=== PATIENT | female | born 1980 | race Caucasian/White ===

== ENCOUNTER 2020-01-30 16:38 | Inpatient (IN) | payer MEDICAID ==
[~2020-01-30] VITALS: Ht 170.2 cm; Wt 74.0 kg
--- NOTE | 2020-01-30 16:48 | NUR ---
PT SENT FROM [facility] VIA EMS FOR ABNORMAL LABS. PT AMMONIA IS HIGH, K 2.9, SODIUM 129, CREAT 7.1, AND ELEVATED LIVER AND PANCREAS ENZYMES. PT HAS HX OF CIRROSHIS. PT APPEARS TO BE JAUNDICED. PT IS AWARE OF PERSON, PLACE, TIME, SITUATION BUT IS NOT ALERT. SHE IS DROWSY AND HER WORDS ARE SLURRED. PT IS RESTING IN GURNEY. 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
--- NOTE | 2020-01-30 17:42 | NUR ---
TASK RN: PT RESTING IN GURNEY WITH EYES CLOSED, EASILY ARROUSABLE TO VOICE AND LIGHT PHYSICAL STIM THEN DRIFTS SWIFTLY TO SLEEP. NAD NOTED. RESPIRATIONS EVEN/UNLABORED. VS UNREMARKABLE
[2020-01-30] MEDS ORDERED: TRAZ-175 PO (18:05)
[2020-01-30] MEDS ORDERED: VENL37.511 PO (18:05)
[2020-01-30] MEDS ORDERED: ONDA4TAB13 SL (18:05)
[2020-01-30] MEDS ORDERED: PANT40TA6 PO (18:05)
[2020-01-30] MEDS ORDERED: NADO80TA2 PO (18:05)
[2020-01-30] MEDS ORDERED: ALBUTEROL (18:05)
[2020-01-30] MEDS ORDERED: SUCR1TAB PO (18:05)
[2020-01-30] MEDS ORDERED: LACT10SO28 PO (18:05)
[2020-01-30] MEDS ORDERED: MULTIVITAMIN (18:05)
[2020-01-30 18:10] LABS: ALBUMIN 1.9 g/dL (3.4-5.0); ANION GAP 11 mmol/L (5-15); CALCIUM 7.4 mg/dL (8.5-10.1); CHLORIDE 99 mmol/L (98-107); CREATININE 4.73 mg/dL (0.55-1.02)
[2020-01-30] MEDS ORDERED: NS + 20MEQ KCL 1,000 ML IV SCH (19:08)
[2020-01-30] MEDS ORDERED: hydrALAzine 20 MG/ML, 1ML IVPush PRN (19:30)
[2020-01-30] MEDS ORDERED: SODIUM CHLORIDE 0.9% 1,000 ML IV SCH (19:30)
[2020-01-30 20:19] VITALS: BP 120/86
[2020-01-30 20:25] LABS: CALCIUM 7.5 mg/dL (8.5-10.1)
[2020-01-30 20:26] LABS: ABSOLUTE RETICS # 0.1 x10^6/uL (0.5-2.5); RED BLOOD COUNT 4.05 x10^6/uL (3.82-5.3); RETICULOCYTE COUNT % 2.48 % (0.5-1.5)
[2020-01-30 20:34] LABS: % IRON SATURATION 28 % (20-55); CREATINE KINASE, TOTAL 19 U/L (26-192); IRON LEVEL 75 mcg/dL (50-170); TOTAL IRON BINDING CAPACITY 264 mcg/dL (250-450)
[2020-01-30 20:56] LABS: INTERNATIONAL NORMALIZED RATIO 1.32 (0.93-1.1); PROTHROMBIN TIME 13.6 Seconds (9.6-11.5)
[2020-01-30] MEDS: LACTULOSE 10 GM/15 ML UDC PO SCH (21:00)
[2020-01-30] MEDS: PANTOPRAZOLE 40MG TABLET PO SCH (21:00)
[2020-01-30] MEDS: POTASSIUM CHLORIDE 20 MEQ in SODIUM CHLORIDE 0.9% 1,000 ML IV SCH (21:18)
[2020-01-30] MEDS: NICOTINE 14MG/24 HR PATCH.TD24 TD SCH (21:33)
[2020-01-30] MEDS: FAMOTIDINE 20 MG/2 ML IVPush SCH (21:33)
[2020-01-30] MEDS: INSULIN LISPRO 100 UNITS/ML, PEN SQ-INSULIN SCH (22:18)
[2020-01-31 00:57] VITALS: BP 124/85
[2020-01-31] MEDS: LIDODERM 5% PATCH TD PRN (00:57)
[2020-01-31] MEDS: POTASSIUM CHLORIDE 20 MEQ in SODIUM CHLORIDE 0.9% 1,000 ML IV SCH ×3 (02:28→23:44)
[2020-01-31 05:00] LABS: MICROSCOPIC INDICATED
[2020-01-31 05:00] LABS: MEAN CORPUSCULAR HEMOGLOBIN 31.5 pg (27.0-34.8); MEAN CORPUSCULAR HGB CONC 33.2 g/dL (32.4-35.8); MEAN CORPUSCULAR VOLUME 94.7 fL (80-100); MEAN PLATELET VOLUME 9.3 fL (7.4-10.4); PLATELET COUNT 118 x10^3/uL (130-400); RED BLOOD COUNT 4.16 x10^6/uL (3.82-5.3); RED CELL DISTRIBUTION WIDTH 18.5 % (9.6-15.2)
[2020-01-31 05:04] LABS: CHLORIDE,URINE RANDOM 13 mmol/L; POTASSIUM,URINE RANDOM 26 mmol/L; SODIUM,URINE RANDOM 11 mmol/L
[2020-01-31 05:08] VITALS: BP 132/72
[2020-01-31 05:09] LABS: ANION GAP 9 mmol/L (5-15); CALCIUM 7.3 mg/dL (8.5-10.1); CHLORIDE 106 mmol/L (98-107)
[2020-01-31 05:09] LABS: INTERNATIONAL NORMALIZED RATIO 1.36 (0.93-1.1)
[2020-01-31 05:17] LABS: % IRON SATURATION 22 % (20-55); ALANINE AMINOTRANSFERASE 61 U/L (12-78); ALKALINE PHOSPHATASE 212 U/L (45-117); BILIRUBIN,TOTAL 7.7 mg/dL (0.2-1.0); IRON LEVEL 62 mcg/dL (50-170); TOTAL IRON BINDING CAPACITY 288 mcg/dL (250-450); TOTAL PROTEIN 6.6 g/dL (6.4-8.2)
[2020-01-31 05:23] LABS: OSMOLALITY,URINE 405 mOsm/kg (500-850)
[2020-01-31 05:55] LABS: MD YES
[2020-01-31 05:56] LABS: BAND#(MANUAL) 1.53 x10^3/uL; BANDS%(MANUAL) 7 % (0-7); LYMPHS% (MANUAL) 5 % (22-44); MONOS% (MANUAL) 5 % (2-9); SEG#(MANUAL) 18.18 x10^3/uL (1.8-6.8); SEGS% (MANUAL) 83 % (42-75)
[2020-01-31 05:57] LABS: ANISOCYTOSIS 1+; POLYCHROMASIA 1+; TARGET CELLS 1+
[2020-01-31 05:58] LABS: <PLATELET ESTIMATE> DECREASED; <PLT MORPHOLOGY> NORMAL PLT MORPH
[2020-01-31] MEDS: ACETAMINOPHEN 325 MG TABLET PO PRN (06:43)
[2020-01-31] MEDS ORDERED: POTASSIUM PHOSPHATE 44 MEQ in SODIUM CHLORIDE 0.9% 500 ML IV ONE (07:00)
[2020-01-31] MEDS ORDERED: POTASSIUM CHLORIDE 20 MEQ TAB.ER.PRT PO ONE ×2 (07:00→14:00)
[2020-01-31] MEDS: VENLAFAXINE XR 37.5MG CAP.ER.24H PO SCH (08:26)
[2020-01-31] MEDS: PANTOPRAZOLE 40MG TABLET PO SCH ×2 (08:26→21:11)
[2020-01-31] MEDS: LACTULOSE 10 GM/15 ML UDC PO SCH ×3 (08:26→21:00)
[2020-01-31] MEDS: FAMOTIDINE 20 MG/2 ML IVPush SCH (08:27)
[2020-01-31 08:36] VITALS: BP 134/90
[2020-01-31] MEDS: NADOLOL 20 MG TABLET PO SCH (09:32)
[2020-01-31] MEDS: INSULIN LISPRO 100 UNITS/ML, PEN SQ-INSULIN SCH ×5 (09:34→21:12)
[2020-01-31] MEDS: CEFTRIAXONE PMX 1GM/50ML 50 ML IV SCH (10:56)
[2020-01-31 11:37] LABS: OCCULT BLOOD POSITIVE (NEGATIVE)
[2020-01-31] MEDS ORDERED: LORazepam 0.5MG TABLET PO PRN (12:00)
[2020-01-31] MEDS ORDERED: LORazepam 2 MG/ML, 1ML IV PRN (12:00)
[2020-01-31] MEDS ORDERED: LORazepam 1MG TABLET PO PRN ×4 (12:00)
[2020-01-31] MEDS: LORazepam 2 MG/ML, 1ML IV PRN ×3 (12:17→21:11)
[2020-01-31] MEDS: LIDODERM REMOVE PATCH NOTE XX SCH (13:00)
[2020-01-31 13:11] LABS: ANION GAP 10 mmol/L (5-15); CALCIUM 6.8 mg/dL (8.5-10.1); CHLORIDE 110 mmol/L (98-107); CREATININE 2.64 mg/dL (0.55-1.02)
[2020-01-31] MEDS: THIAMINE 200 MG in SODIUM CHLORIDE 0.9% 50 ML IV SCH (14:03)
[2020-01-31 15:09] VITALS: BP 118/87
[2020-01-31 16:03] LABS: POTASSIUM,URINE RANDOM 26 mmol/L; SODIUM,URINE RANDOM 15 mmol/L
[2020-01-31 16:05] LABS: CHLORIDE,URINE RANDOM < 10 mmol/L
[2020-01-31 18:31] VITALS: BP 124/92
[2020-01-31] MEDS: INSULIN GLARGINE 100 UNITS/ML, PEN SQ-INSULIN SCH (21:12)
[2020-01-31] MEDS: NICOTINE 14MG/24 HR PATCH.TD24 TD SCH (21:15)
[2020-02-01] MEDS: LORazepam 2 MG/ML, 1ML IV PRN ×10 (00:45→23:39)
[2020-02-01 01:17] VITALS: BP 147/94
[2020-02-01 06:15] LABS: MEAN CORPUSCULAR HEMOGLOBIN 31.9 pg (27.0-34.8); MEAN CORPUSCULAR HGB CONC 33.8 g/dL (32.4-35.8); MEAN CORPUSCULAR VOLUME 94.3 fL (80-100); MEAN PLATELET VOLUME 9.4 fL (7.4-10.4); PLATELET COUNT 134 x10^3/uL (130-400); RED BLOOD COUNT 3.77 x10^6/uL (3.82-5.3); RED CELL DISTRIBUTION WIDTH 19.4 % (9.6-15.2)
[2020-02-01 06:22] LABS: ALANINE AMINOTRANSFERASE 64 U/L (12-78); ALBUMIN 1.8 g/dL (3.4-5.0); ANION GAP 9 mmol/L (5-15); CALCIUM 6.8 mg/dL (8.5-10.1); CHLORIDE 117 mmol/L (98-107); CREATININE 1.38 mg/dL (0.55-1.02)
[2020-02-01 06:23] LABS: ALKALINE PHOSPHATASE 210 U/L (45-117); BILIRUBIN,TOTAL 7.2 mg/dL (0.2-1.0); TOTAL PROTEIN 6.7 g/dL (6.4-8.2)
[2020-02-01] MEDS ORDERED: CALCIUM GLUCONATE 9.2 MEQ in SODIUM CHLORIDE 0.9% 100 ML IV ONE (06:30)
[2020-02-01] MEDS ORDERED: POTASSIUM PHOSPHATE 44 MEQ in SODIUM CHLORIDE 0.9% 500 ML IV ONE (06:30)
[2020-02-01 06:37] VITALS: BP 143/90
[2020-02-01 06:39] LABS: MD YES
[2020-02-01 06:42] LABS: ANISOCYTOSIS 1+; BAND#(MANUAL) 3.28 x10^3/uL; BANDS%(MANUAL) 12 % (0-7); LYMPH#(MANUAL) 1.09 x10^3/uL (1-3.4); LYMPHS% (MANUAL) 4 % (22-44); MONOS#(MANUAL) 1.64 x10^3/uL (0.3-2.7); MONOS% (MANUAL) 6 % (2-9); SEG#(MANUAL) 21.29 x10^3/uL (1.8-6.8); SEGS% (MANUAL) 78 % (42-75); TOXIC GRAN 1+
[2020-02-01 06:43] LABS: TARGET CELLS 1+
[2020-02-01 06:50] LABS: <PLATELET ESTIMATE> ADEQUATE; <PLT MORPHOLOGY> NORMAL PLT MORPH
[2020-02-01] MEDS: LACTULOSE 10 GM/15 ML UDC PO SCH (07:51)
[2020-02-01 08:28] LABS: O2 FLOW 15 L/min
[2020-02-01] MEDS: ALBUTEROL-IPRATROPIUM MDI INH INH SCH ×4 (09:30→21:18)
[2020-02-01] MEDS: THIAMINE 200 MG in SODIUM CHLORIDE 0.9% 50 ML IV SCH (09:33)
[2020-02-01] MEDS: NADOLOL 20 MG TABLET PO SCH (09:34)
[2020-02-01] MEDS: PANTOPRAZOLE 40MG TABLET PO SCH ×2 (09:34→21:18)
[2020-02-01] MEDS: VENLAFAXINE XR 37.5MG CAP.ER.24H PO SCH (09:34)
[2020-02-01] MEDS: INSULIN LISPRO 100 UNITS/ML, PEN SQ-INSULIN SCH ×4 (09:35→21:19)
[2020-02-01] MEDS: CEFTRIAXONE PMX 1GM/50ML 50 ML IV SCH (10:00)
[2020-02-01] MEDS ORDERED: LACTATED RINGERS 1,000 ML IV SCH (10:30)
[2020-02-01 10:48] LABS: CLOSTRIDIUM DIFFICILE ANTIGEN NEGATIVE; CLOSTRIDIUM DIFFICILE TOXIN NEGATIVE (Negative)
[2020-02-01] MEDS: LIDODERM REMOVE PATCH NOTE XX SCH (13:00)
[2020-02-01] MEDS: MEROPENEM 1 GM in SODIUM CHLORIDE 0.9% 100 ML IV SCH ×2 (14:00→22:14)
[2020-02-01 14:10] VITALS: BP 138/62
[2020-02-01 18:25] VITALS: BP 132/65
[2020-02-01] MEDS ORDERED: POTASSIUM CHLORIDE 20 MEQ in SODIUM CHLORIDE 0.9% 1,000 ML IV SCH (19:30)
[2020-02-01] MEDS: NICOTINE 14MG/24 HR PATCH.TD24 TD SCH (21:18)
[2020-02-01] MEDS: INSULIN GLARGINE 100 UNITS/ML, PEN SQ-INSULIN SCH (21:19)
[2020-02-02] MEDS: LORazepam 2 MG/ML, 1ML IV PRN ×7 (00:38→18:23)
[2020-02-02 02:00] VITALS: BP 126/62
[2020-02-02 04:45] LABS: MEAN CORPUSCULAR HEMOGLOBIN 31.5 pg (27.0-34.8); MEAN CORPUSCULAR HGB CONC 33.5 g/dL (32.4-35.8); MEAN PLATELET VOLUME 9.1 fL (7.4-10.4); PLATELET COUNT 155 x10^3/uL (130-400); RED BLOOD COUNT 3.81 x10^6/uL (3.82-5.3); RED CELL DISTRIBUTION WIDTH 19.1 % (9.6-15.2)
[2020-02-02 04:53] LABS: ANION GAP 9 mmol/L (5-15); CALCIUM 7.2 mg/dL (8.5-10.1); CHLORIDE 121 mmol/L (98-107); CREATININE 1.02 mg/dL (0.55-1.02)
[2020-02-02 04:54] LABS: ALANINE AMINOTRANSFERASE 71 U/L (12-78); ALBUMIN 1.8 g/dL (3.4-5.0)
[2020-02-02 04:58] LABS: ALKALINE PHOSPHATASE 216 U/L (45-117); BILIRUBIN,TOTAL 7.6 mg/dL (0.2-1.0); TOTAL PROTEIN 6.7 g/dL (6.4-8.2)
[2020-02-02] MEDS: ALBUTEROL-IPRATROPIUM MDI INH INH SCH ×4 (05:12→20:59)
[2020-02-02 05:49] LABS: MD YES
[2020-02-02 05:50] LABS: BAND#(MANUAL) 0.84 x10^3/uL; BANDS%(MANUAL) 3 % (0-7); LYMPH#(MANUAL) 0.84 x10^3/uL (1-3.4); LYMPHS% (MANUAL) 3 % (22-44); MONOS#(MANUAL) 1.12 x10^3/uL (0.3-2.7); MONOS% (MANUAL) 4 % (2-9); SEG#(MANUAL) 25.29 x10^3/uL (1.8-6.8); SEGS% (MANUAL) 90 % (42-75)
[2020-02-02 05:51] LABS: <PLATELET ESTIMATE> ADEQUATE; <PLT MORPHOLOGY> NORMAL PLT MORPH; ANISOCYTOSIS 1+; TARGET CELLS 1+
[2020-02-02] MEDS: MEROPENEM 1 GM in SODIUM CHLORIDE 0.9% 100 ML IV SCH ×3 (06:03→22:01)
[2020-02-02] MEDS ORDERED: POTASSIUM CHLORIDE 20 MEQ TAB.ER.PRT PO ONE (06:30)
[2020-02-02] MEDS ORDERED: POTASSIUM PHOSPHATE 44 MEQ in SODIUM CHLORIDE 0.9% 500 ML IV ONE (06:30)
[2020-02-02 07:18] VITALS: BP 137/96
[2020-02-02] MEDS: THIAMINE 200 MG in SODIUM CHLORIDE 0.9% 50 ML IV SCH (08:36)
[2020-02-02] MEDS: INSULIN LISPRO 100 UNITS/ML, PEN SQ-INSULIN SCH ×4 (08:43→21:00)
[2020-02-02] MEDS: NADOLOL 20 MG TABLET PO SCH (08:48)
[2020-02-02] MEDS: VENLAFAXINE XR 37.5MG CAP.ER.24H PO SCH (08:48)
[2020-02-02] MEDS: PANTOPRAZOLE 40MG TABLET PO SCH (08:48)
[2020-02-02] MEDS: DIAZEPAM 10 MG TABLET PO SCH ×3 (08:49→20:59)
[2020-02-02] MEDS ORDERED: POTASSIUM CHLORIDE 20 MEQ PACKET PO ONE (09:00)
[2020-02-02] MEDS ORDERED: DIAZEPAM 10 MG TABLET PO SCH (09:00)
[2020-02-02] MEDS: LIDODERM REMOVE PATCH NOTE XX SCH (13:00)
[2020-02-02 13:04] VITALS: BP 150/96
[2020-02-02] MEDS: SODIUM BICARBONATE 650 MG TABLET PO SCH ×2 (14:53→20:59)
[2020-02-02 19:12] VITALS: BP 143/92
[2020-02-02] MEDS: NICOTINE 14MG/24 HR PATCH.TD24 TD SCH (20:59)
[2020-02-02] MEDS: INSULIN GLARGINE 100 UNITS/ML, PEN SQ-INSULIN SCH (21:01)
[2020-02-02] MEDS: PANTOPRAZOLE 40 MG IV IVPush SCH (23:25)
[2020-02-03] MEDS: LORazepam 2 MG/ML, 1ML IV PRN ×6 (00:44→18:18)
[2020-02-03 01:55] VITALS: BP 137/86
[2020-02-03] MEDS: DIAZEPAM 10 MG TABLET PO SCH ×2 (03:16→08:20)
[2020-02-03] MEDS: MEROPENEM 1 GM in SODIUM CHLORIDE 0.9% 100 ML IV SCH (05:47)
[2020-02-03] MEDS: ALBUTEROL-IPRATROPIUM MDI INH INH SCH ×4 (05:48→21:41)
[2020-02-03 06:19] LABS: ALANINE AMINOTRANSFERASE 83 U/L (12-78); ALBUMIN 1.9 g/dL (3.4-5.0); ANION GAP 7 mmol/L (5-15); CALCIUM 7.6 mg/dL (8.5-10.1); CHLORIDE 122 mmol/L (98-107)
[2020-02-03 06:21] LABS: ALKALINE PHOSPHATASE 239 U/L (45-117)
[2020-02-03 06:26] LABS: MEAN CORPUSCULAR HEMOGLOBIN 31.5 pg (27.0-34.8); MEAN CORPUSCULAR HGB CONC 32.9 g/dL (32.4-35.8); MEAN CORPUSCULAR VOLUME 95.9 fL (80-100); MEAN PLATELET VOLUME 8.7 fL (7.4-10.4); PLATELET COUNT 201 x10^3/uL (130-400); RED BLOOD COUNT 3.73 x10^6/uL (3.82-5.3); RED CELL DISTRIBUTION WIDTH 20.7 % (9.6-15.2)
[2020-02-03 06:49] LABS: MD YES
[2020-02-03 06:50] VITALS: BP 144/91
[2020-02-03 06:50] LABS: BAND#(MANUAL) 0.65 x10^3/uL; BANDS%(MANUAL) 2 % (0-7); EOS#(MANUAL) 0.33 x10^3/uL (0.0-0.4); EOS% (MANUAL) 1 % (1-7); LYMPHS% (MANUAL) 8 % (22-44)
[2020-02-03 06:51] LABS: ANISOCYTOSIS 1+; MONOS#(MANUAL) 1.95 x10^3/uL (0.3-2.7); MONOS% (MANUAL) 6 % (2-9); SEG#(MANUAL) 26.98 x10^3/uL (1.8-6.8); SEGS% (MANUAL) 83 % (42-75); TARGET CELLS 1+
[2020-02-03 06:52] LABS: <PLATELET ESTIMATE> ADEQUATE; <PLT MORPHOLOGY> NORMAL PLT MORPH; POLYCHROMASIA 1+
[2020-02-03] MEDS ORDERED: POTASSIUM PHOSPHATE 44 MEQ in SODIUM CHLORIDE 0.9% 500 ML IV ONE (07:00)
[2020-02-03] MEDS: NADOLOL 20 MG TABLET PO SCH (08:20)
[2020-02-03] MEDS: SODIUM BICARBONATE 650 MG TABLET PO SCH ×2 (08:20→21:41)
[2020-02-03] MEDS: PANTOPRAZOLE 40 MG IV IVPush SCH ×2 (08:20→21:41)
[2020-02-03] MEDS: INSULIN LISPRO 100 UNITS/ML, PEN SQ-INSULIN SCH ×4 (08:20→21:42)
[2020-02-03] MEDS: ACETAMINOPHEN 325 MG TABLET PO PRN (08:41)
[2020-02-03] MEDS: HEPARIN 5,000 UNITS/ML, 1ML SQ SCH ×2 (08:41→16:21)
[2020-02-03] MEDS: CEFTRIAXONE PMX 1GM/50ML 50 ML IV SCH (08:44)
[2020-02-03] MEDS: VENLAFAXINE XR 37.5MG CAP.ER.24H PO SCH (09:10)
[2020-02-03] MEDS: THIAMINE 200 MG in SODIUM CHLORIDE 0.9% 50 ML IV SCH (09:16)
[2020-02-03 09:47] LABS: INTERNATIONAL NORMALIZED RATIO 1.41 (0.93-1.1); PROTHROMBIN TIME 14.6 Seconds (9.6-11.5)
[2020-02-03] MEDS ORDERED: DEXTROSE 5% 1,000 ML IV SCH (11:00)
[2020-02-03] MEDS: LIDODERM REMOVE PATCH NOTE XX SCH (12:20)
[2020-02-03 14:52] VITALS: BP 120/82
[2020-02-03] MEDS: DIAZEPAM 5 MG TABLET PO SCH ×2 (15:09→21:41)
[2020-02-03 19:37] VITALS: BP 130/90
[2020-02-03] MEDS: NICOTINE 14MG/24 HR PATCH.TD24 TD SCH (20:15)
[2020-02-03] MEDS: VENLAFAXINE 37.5MG TABLET PO SCH (21:41)
[2020-02-03] MEDS: INSULIN GLARGINE 100 UNITS/ML, PEN SQ-INSULIN SCH (21:42)
[2020-02-04 00:10] VITALS: BP 137/94
[2020-02-04] MEDS: HEPARIN 5,000 UNITS/ML, 1ML SQ SCH ×4 (01:28→23:38)
[2020-02-04] MEDS: DIAZEPAM 5 MG TABLET PO SCH ×3 (02:42→20:53)
[2020-02-04] MEDS: LORazepam 2 MG/ML, 1ML IV PRN ×2 (03:59→23:08)
[2020-02-04] MEDS: ALBUTEROL-IPRATROPIUM MDI INH INH SCH ×4 (05:06→21:00)
[2020-02-04 06:08] LABS: MEAN CORPUSCULAR HEMOGLOBIN 31.9 pg (27.0-34.8); MEAN CORPUSCULAR HGB CONC 33.6 g/dL (32.4-35.8); MEAN CORPUSCULAR VOLUME 94.9 fL (80-100); PLATELET COUNT 188 x10^3/uL (130-400); RED BLOOD COUNT 3.48 x10^6/uL (3.82-5.3); RED CELL DISTRIBUTION WIDTH 20.4 % (9.6-15.2)
[2020-02-04 06:20] LABS: ALANINE AMINOTRANSFERASE 102 U/L (12-78); ALBUMIN 1.7 g/dL (3.4-5.0); ANION GAP 6 mmol/L (5-15); CALCIUM 7.6 mg/dL (8.5-10.1); CHLORIDE 124 mmol/L (98-107); CREATININE 1.01 mg/dL (0.55-1.02)
[2020-02-04 06:22] LABS: ALKALINE PHOSPHATASE 244 U/L (45-117); BILIRUBIN,TOTAL 12.9 mg/dL (0.2-1.0)
[2020-02-04 07:00] VITALS: BP 124/81
[2020-02-04 07:07] LABS: MD YES
[2020-02-04 07:08] LABS: ANISOCYTOSIS 1+; LYMPH#(MANUAL) 1.84 x10^3/uL (1-3.4); LYMPHS% (MANUAL) 6 % (22-44); MONOS#(MANUAL) 1.54 x10^3/uL (0.3-2.7); MONOS% (MANUAL) 5 % (2-9); SEG#(MANUAL) 27.32 x10^3/uL (1.8-6.8); SEGS% (MANUAL) 89 % (42-75); TARGET CELLS 1+
[2020-02-04 07:09] LABS: <PLATELET ESTIMATE> ADEQUATE; <PLT MORPHOLOGY> NORMAL PLT MORPH
[2020-02-04] MEDS: INSULIN LISPRO 100 UNITS/ML, PEN SQ-INSULIN SCH ×4 (09:03→21:00)
[2020-02-04] MEDS: CEFTRIAXONE PMX 1GM/50ML 50 ML IV SCH (09:03)
[2020-02-04] MEDS: THIAMINE 200 MG in SODIUM CHLORIDE 0.9% 50 ML IV SCH (11:22)
[2020-02-04] MEDS: PANTOPRAZOLE 40 MG IV IVPush SCH ×2 (11:23→20:52)
[2020-02-04] MEDS: VENLAFAXINE 37.5MG TABLET PO SCH ×2 (11:29→20:53)
[2020-02-04] MEDS: NADOLOL 20 MG TABLET PO SCH (11:29)
[2020-02-04 12:00] VITALS: BP 116/73
[2020-02-04] MEDS: SODIUM BICARBONATE 650 MG TABLET PO SCH ×2 (13:36→20:52)
[2020-02-04] MEDS: LIDODERM REMOVE PATCH NOTE XX SCH (13:43)
[2020-02-04] MEDS: DEXTROSE 5% 1,000 ML IV SCH ×2 (14:57→21:00)
[2020-02-04] MEDS ORDERED: LIDOCAINE GEL 2%, 5ML ONE (16:00)
[2020-02-04] MEDS ORDERED: BENZOCAINE 20% SPRAY 0.5ML ONE (16:00)
[2020-02-04] MEDS: NICOTINE 14MG/24 HR PATCH.TD24 TD SCH (19:30)
[2020-02-04 20:08] VITALS: BP 121/85
[2020-02-04] MEDS: INSULIN GLARGINE 100 UNITS/ML, PEN SQ-INSULIN SCH (21:00)
[2020-02-05 00:06] VITALS: BP 129/85
[2020-02-05 05:40] LABS: MEAN CORPUSCULAR HEMOGLOBIN 32.1 pg (27.0-34.8); MEAN CORPUSCULAR HGB CONC 33.5 g/dL (32.4-35.8); MEAN CORPUSCULAR VOLUME 95.9 fL (80-100); MEAN PLATELET VOLUME 9.7 fL (7.4-10.4); PLATELET COUNT 198 x10^3/uL (130-400); RED BLOOD COUNT 3.29 x10^6/uL (3.82-5.3); RED CELL DISTRIBUTION WIDTH 20.7 % (9.6-15.2)
[2020-02-05 05:50] LABS: ALBUMIN 1.8 g/dL (3.4-5.0); ANION GAP 6 mmol/L (5-15); CALCIUM 7.8 mg/dL (8.5-10.1); CHLORIDE 119 mmol/L (98-107)
[2020-02-05 05:53] LABS: ALANINE AMINOTRANSFERASE 102 U/L (12-78); ALKALINE PHOSPHATASE 232 U/L (45-117); BILIRUBIN,TOTAL 11.9 mg/dL (0.2-1.0); CREATININE 0.99 mg/dL (0.55-1.02); TOTAL PROTEIN 7.3 g/dL (6.4-8.2)
[2020-02-05] MEDS: ALBUTEROL-IPRATROPIUM MDI INH INH SCH ×4 (06:00→22:50)
[2020-02-05 06:25] LABS: BASOPHILS # (AUTO) 0.05 x10^3/uL (0-0.1); BASOPHILS % (AUTO) 0 % (0-1); EOSINOPHILS # (AUTO) 0.12 x10^3/uL (0-0.4); EOSINOPHILS % (AUTO) 0 % (1-7); LYMPHOCYTES # (AUTO) 1.94 x10^3/uL (1-3.4); LYMPHOCYTES % (AUTO) 7 % (22-44); MD SCAN; MONOCYTES # (AUTO) 1.39 x10^3/uL (0.2-0.8); MONOCYTES % (AUTO) 5 % (2-9); NEUTROPHILS # (AUTO) 23.39 x10^3/uL (1.8-6.8); NEUTROPHILS % (AUTO) 87 % (42-75)
[2020-02-05 07:21] VITALS: BP 116/84
[2020-02-05] MEDS: DIAZEPAM 5 MG TABLET PO SCH (09:00)
[2020-02-05] MEDS: SODIUM BICARBONATE 650 MG TABLET PO SCH ×2 (09:35→22:49)
[2020-02-05] MEDS: NADOLOL 20 MG TABLET PO SCH (09:36)
[2020-02-05] MEDS: VENLAFAXINE 37.5MG TABLET PO SCH ×2 (09:36→22:50)
[2020-02-05] MEDS: PANTOPRAZOLE 40 MG IV IVPush SCH ×2 (09:37→22:50)
[2020-02-05] MEDS: HEPARIN 5,000 UNITS/ML, 1ML SQ SCH ×2 (09:38→17:21)
[2020-02-05] MEDS: INSULIN LISPRO 100 UNITS/ML, PEN SQ-INSULIN SCH ×4 (09:39→22:51)
[2020-02-05] MEDS: CEFTRIAXONE PMX 1GM/50ML 50 ML IV SCH (09:44)
[2020-02-05] MEDS: THIAMINE 200 MG in SODIUM CHLORIDE 0.9% 50 ML IV SCH (11:24)
[2020-02-05] MEDS: LIDODERM REMOVE PATCH NOTE XX SCH (13:02)
[2020-02-05 14:37] VITALS: BP 118/81
[2020-02-05 19:50] VITALS: BP 125/81
[2020-02-05] MEDS: ACETAMINOPHEN 325 MG TABLET PO PRN (22:49)
[2020-02-05] MEDS: NICOTINE 14MG/24 HR PATCH.TD24 TD SCH (22:50)
[2020-02-05] MEDS: INSULIN GLARGINE 100 UNITS/ML, PEN SQ-INSULIN SCH (22:51)
[2020-02-05] MEDS: LIDODERM 5% PATCH TD PRN (22:52)
[2020-02-06 00:09] VITALS: BP 122/82
[2020-02-06] MEDS: HEPARIN 5,000 UNITS/ML, 1ML SQ SCH ×3 (02:42→17:30)
[2020-02-06] MEDS: ALBUTEROL-IPRATROPIUM MDI INH INH SCH ×4 (06:22→21:00)
[2020-02-06 06:47] LABS: MEAN CORPUSCULAR HEMOGLOBIN 32.1 pg (27.0-34.8); MEAN CORPUSCULAR HGB CONC 33.4 g/dL (32.4-35.8); MEAN PLATELET VOLUME 9.5 fL (7.4-10.4); PLATELET COUNT 193 x10^3/uL (130-400); RED BLOOD COUNT 3.18 x10^6/uL (3.82-5.3)
[2020-02-06 06:54] LABS: ALBUMIN 1.7 g/dL (3.4-5.0); ANION GAP 8 mmol/L (5-15); CALCIUM 8.1 mg/dL (8.5-10.1); CHLORIDE 119 mmol/L (98-107)
[2020-02-06 07:00] LABS: ALANINE AMINOTRANSFERASE 93 U/L (12-78); ALKALINE PHOSPHATASE 205 U/L (45-117); BILIRUBIN,TOTAL 10.8 mg/dL (0.2-1.0); CREATININE 0.92 mg/dL (0.55-1.02); TOTAL PROTEIN 7.3 g/dL (6.4-8.2)
[2020-02-06 08:08] LABS: BASOPHILS # (AUTO) 0.23 x10^3/uL (0-0.1); BASOPHILS % (AUTO) 1 % (0-1); EOSINOPHILS # (AUTO) 0.12 x10^3/uL (0-0.4); EOSINOPHILS % (AUTO) 1 % (1-7); LYMPHOCYTES # (AUTO) 2.54 x10^3/uL (1-3.4); LYMPHOCYTES % (AUTO) 12 % (22-44); MD SCAN; MONOCYTES # (AUTO) 1.12 x10^3/uL (0.2-0.8); MONOCYTES % (AUTO) 5 % (2-9); NEUTROPHILS # (AUTO) 16.87 x10^3/uL (1.8-6.8); NEUTROPHILS % (AUTO) 81 % (42-75)
[2020-02-06] MEDS ORDERED: INSULIN GLARGINE 100 UNITS/ML, PEN SQ-INSULIN SCH (09:00)
[2020-02-06] MEDS: THIAMINE 200 MG in SODIUM CHLORIDE 0.9% 50 ML IV SCH (09:00)
[2020-02-06] MEDS: ACETAMINOPHEN 325 MG TABLET PO PRN ×2 (09:12→21:47)
[2020-02-06] MEDS: CEFTRIAXONE PMX 1GM/50ML 50 ML IV SCH (09:12)
[2020-02-06] MEDS: PANTOPRAZOLE 40 MG IV IVPush SCH ×2 (09:13→21:46)
[2020-02-06] MEDS: VENLAFAXINE 37.5MG TABLET PO SCH ×2 (09:13→21:48)
[2020-02-06] MEDS: NADOLOL 20 MG TABLET PO SCH (09:13)
[2020-02-06] MEDS: SODIUM BICARBONATE 650 MG TABLET PO SCH (09:14)
[2020-02-06] MEDS: INSULIN LISPRO 100 UNITS/ML, PEN SQ-INSULIN SCH ×5 (09:15→21:49)
[2020-02-06 09:42] VITALS: BP 115/77
[2020-02-06] MEDS: DEXTROSE 5% 1,000 ML IV SCH (10:30)
[2020-02-06] MEDS: LIDODERM REMOVE PATCH NOTE XX SCH (13:00)
[2020-02-06 14:17] VITALS: BP 113/78
[2020-02-06 18:37] VITALS: BP 108/72
[2020-02-06] MEDS: NICOTINE 14MG/24 HR PATCH.TD24 TD SCH (21:46)
[2020-02-06] MEDS: INSULIN GLARGINE 100 UNITS/ML, PEN SQ-INSULIN SCH (21:49)
[2020-02-06] MEDS: LIDODERM 5% PATCH TD PRN (23:43)
[2020-02-07 00:27] VITALS: BP 107/68
[2020-02-07] MEDS: HEPARIN 5,000 UNITS/ML, 1ML SQ SCH ×3 (01:48→16:07)
[2020-02-07 04:29] LABS: MEAN CORPUSCULAR HEMOGLOBIN 32.2 pg (27.0-34.8); MEAN CORPUSCULAR HGB CONC 33.6 g/dL (32.4-35.8); MEAN CORPUSCULAR VOLUME 95.8 fL (80-100); MEAN PLATELET VOLUME 10.1 fL (7.4-10.4); PLATELET COUNT 192 x10^3/uL (130-400); RED CELL DISTRIBUTION WIDTH 21.5 % (9.6-15.2)
[2020-02-07 04:40] LABS: ALBUMIN 1.6 g/dL (3.4-5.0); ANION GAP 9 mmol/L (5-15); CHLORIDE 115 mmol/L (98-107)
[2020-02-07 04:45] LABS: ALANINE AMINOTRANSFERASE 87 U/L (12-78); ALKALINE PHOSPHATASE 187 U/L (45-117); CREATININE 0.89 mg/dL (0.55-1.02); TOTAL PROTEIN 7.1 g/dL (6.4-8.2)
[2020-02-07 05:55] LABS: BASOPHILS # (AUTO) 0.04 x10^3/uL (0-0.1); BASOPHILS % (AUTO) 0 % (0-1); EOSINOPHILS # (AUTO) 0.13 x10^3/uL (0-0.4); EOSINOPHILS % (AUTO) 1 % (1-7); LYMPHOCYTES % (AUTO) 11 % (22-44); MD SCAN; MONOCYTES # (AUTO) 0.54 x10^3/uL (0.2-0.8); MONOCYTES % (AUTO) 3 % (2-9); NEUTROPHILS # (AUTO) 15.15 x10^3/uL (1.8-6.8); NEUTROPHILS % (AUTO) 85 % (42-75)
[2020-02-07] MEDS: DEXTROSE 5% 1,000 ML IV SCH (06:31)
[2020-02-07] MEDS: ALBUTEROL-IPRATROPIUM MDI INH INH SCH ×4 (06:31→22:31)
[2020-02-07 07:24] VITALS: BP 135/88
[2020-02-07] MEDS: VENLAFAXINE 37.5MG TABLET PO SCH ×2 (08:24→22:26)
[2020-02-07] MEDS: PANTOPRAZOLE 40 MG IV IVPush SCH ×2 (08:25→22:26)
[2020-02-07] MEDS: THIAMINE 200 MG in SODIUM CHLORIDE 0.9% 50 ML IV SCH (08:27)
[2020-02-07] MEDS: INSULIN LISPRO 100 UNITS/ML, PEN SQ-INSULIN SCH ×7 (08:28→22:30)
[2020-02-07] MEDS: INSULIN GLARGINE 100 UNITS/ML, PEN SQ-INSULIN SCH ×2 (08:29→22:29)
[2020-02-07] MEDS: NADOLOL 20 MG TABLET PO SCH (09:00)
[2020-02-07] MEDS: CEFTRIAXONE PMX 1GM/50ML 50 ML IV SCH (10:23)
[2020-02-07] MEDS ORDERED: MIDAZOLAM 1 MG/ML, 5ML ONE ×2 (10:40)
[2020-02-07] MEDS ORDERED: FENTANYL PF 100 MCG/2ML ONE (10:40)
[2020-02-07] MEDS ORDERED: GADOTERATE 10 MMOL/20 ML VIAL ONE (11:59)
[2020-02-07] MEDS: LIDODERM REMOVE PATCH NOTE XX SCH (12:36)
[2020-02-07 12:43] VITALS: BP 115/78
[2020-02-07 18:51] VITALS: BP 123/84
[2020-02-07] MEDS: LIDODERM 5% PATCH TD PRN (22:26)
[2020-02-07] MEDS: NICOTINE 14MG/24 HR PATCH.TD24 TD SCH (22:26)
[2020-02-07] MEDS: ACETAMINOPHEN 325 MG TABLET PO PRN (22:26)
[2020-02-08 01:03] VITALS: BP 116/78
[2020-02-08] MEDS: HEPARIN 5,000 UNITS/ML, 1ML SQ SCH ×3 (01:18→17:11)
[2020-02-08 03:16] LABS: ALANINE AMINOTRANSFERASE 77 U/L (12-78); ALBUMIN 1.5 g/dL (3.4-5.0); ANION GAP 8 mmol/L (5-15); CHLORIDE 113 mmol/L (98-107); CREATININE 0.82 mg/dL (0.55-1.02)
[2020-02-08 03:18] LABS: ALKALINE PHOSPHATASE 167 U/L (45-117); BILIRUBIN,TOTAL 7.2 mg/dL (0.2-1.0); TOTAL PROTEIN 7.3 g/dL (6.4-8.2)
[2020-02-08] MEDS: ACETAMINOPHEN 325 MG TABLET PO PRN ×2 (05:57→21:11)
[2020-02-08] MEDS: DEXTROSE 5% 1,000 ML IV SCH (05:58)
[2020-02-08] MEDS: ALBUTEROL-IPRATROPIUM MDI INH INH SCH ×4 (05:58→21:10)
[2020-02-08 07:23] VITALS: BP 102/70
[2020-02-08] MEDS: INSULIN LISPRO 100 UNITS/ML, PEN SQ-INSULIN SCH ×7 (07:35→21:00)
[2020-02-08] MEDS: INSULIN GLARGINE 100 UNITS/ML, PEN SQ-INSULIN SCH ×2 (07:37→21:12)
[2020-02-08] MEDS: VENLAFAXINE 37.5MG TABLET PO SCH ×2 (07:37→21:11)
[2020-02-08] MEDS: NADOLOL 20 MG TABLET PO SCH (07:38)
[2020-02-08] MEDS: PANTOPRAZOLE 40 MG IV IVPush SCH (07:39)
[2020-02-08] MEDS: THIAMINE 200 MG in SODIUM CHLORIDE 0.9% 50 ML IV SCH (07:39)
[2020-02-08] MEDS: LIDODERM 5% PATCH TD PRN (07:40)
[2020-02-08 08:32] LABS: MEAN CORPUSCULAR HEMOGLOBIN 31.8 pg (27.0-34.8); MEAN CORPUSCULAR HGB CONC 32.5 g/dL (32.4-35.8); MEAN CORPUSCULAR VOLUME 97.9 fL (80-100); PLATELET COUNT 182 x10^3/uL (130-400); RED BLOOD COUNT 2.99 x10^6/uL (3.82-5.3); RED CELL DISTRIBUTION WIDTH 21.2 % (9.6-15.2)
[2020-02-08] MEDS: FAMOTIDINE 20 MG TABLET PO SCH ×2 (09:00→21:10)
[2020-02-08 09:22] LABS: MD YES
[2020-02-08 09:23] LABS: MONOS#(MANUAL) 0.34 x10^3/uL (0.3-2.7); MONOS% (MANUAL) 2 % (2-9)
[2020-02-08 09:24] LABS: BAND#(MANUAL) 1.03 x10^3/uL; BANDS%(MANUAL) 6 % (0-7); BASOS#(MANUAL) 0.17 x10^3/uL (0-0.1); BASOS% (MANUAL) 1 % (0-1); LYMPH#(MANUAL) 1.03 x10^3/uL (1-3.4); LYMPHS% (MANUAL) 6 % (22-44); METAMYELOCYTES# (MANUAL) 0.17 x10^3/uL (0-0); METAMYELOCYTES% (MANUAL) 1 % (0-1); SEG#(MANUAL) 14.45 x10^3/uL (1.8-6.8); SEGS% (MANUAL) 84 % (42-75)
[2020-02-08 09:25] LABS: ANISOCYTOSIS 1+; POLYCHROMASIA 1+; TARGET CELLS 1+
[2020-02-08] MEDS: CEFTRIAXONE PMX 1GM/50ML 50 ML IV SCH (09:30)
[2020-02-08 09:33] LABS: <PLATELET ESTIMATE> ADEQUATE; LARGE PLATELETS 1+
[2020-02-08] MEDS: LIDODERM REMOVE PATCH NOTE XX SCH (11:57)
[2020-02-08 13:39] VITALS: BP 94/61
[2020-02-08] MEDS: GABAPENTIN 300 MG CAPSULE PO SCH ×2 (17:11→21:11)
[2020-02-08 19:14] VITALS: BP 99/65
[2020-02-08] MEDS: NICOTINE 14MG/24 HR PATCH.TD24 TD SCH (21:11)
[2020-02-09] MEDS: HEPARIN 5,000 UNITS/ML, 1ML SQ SCH ×3 (01:27→17:22)
[2020-02-09] MEDS: DEXTROSE 5% 1,000 ML IV SCH ×2 (01:27→22:12)
[2020-02-09 01:36] VITALS: BP 99/63
[2020-02-09] MEDS: ALBUTEROL-IPRATROPIUM MDI INH INH SCH ×4 (06:26→22:10)
[2020-02-09 06:58] VITALS: BP 111/79
[2020-02-09] MEDS: INSULIN LISPRO 100 UNITS/ML, PEN SQ-INSULIN SCH ×7 (08:03→22:11)
[2020-02-09] MEDS: VENLAFAXINE 37.5MG TABLET PO SCH ×2 (08:17→22:07)
[2020-02-09] MEDS: FAMOTIDINE 20 MG TABLET PO SCH ×2 (08:17→22:07)
[2020-02-09] MEDS: GABAPENTIN 300 MG CAPSULE PO SCH ×3 (08:17→22:07)
[2020-02-09] MEDS: INSULIN GLARGINE 100 UNITS/ML, PEN SQ-INSULIN SCH ×2 (08:17→22:12)
[2020-02-09] MEDS: NADOLOL 20 MG TABLET PO SCH (08:18)
[2020-02-09] MEDS: CEFTRIAXONE PMX 1GM/50ML 50 ML IV SCH (08:18)
[2020-02-09] MEDS: THIAMINE 200 MG in SODIUM CHLORIDE 0.9% 50 ML IV SCH (10:15)
[2020-02-09] MEDS: LIDODERM REMOVE PATCH NOTE XX SCH (13:10)
[2020-02-09 13:31] VITALS: BP 122/79
[2020-02-09 19:35] VITALS: BP 109/82
[2020-02-09] MEDS: ACETAMINOPHEN 325 MG TABLET PO PRN (22:07)
[2020-02-09] MEDS: NICOTINE 14MG/24 HR PATCH.TD24 TD SCH (22:09)
[2020-02-09] MEDS: LIDODERM 5% PATCH TD PRN (22:09)
[2020-02-10 00:20] VITALS: BP 105/61
[2020-02-10] MEDS: HEPARIN 5,000 UNITS/ML, 1ML SQ SCH ×3 (01:36→17:54)
[2020-02-10 06:21] LABS: INTERNATIONAL NORMALIZED RATIO 1.26 (0.93-1.1)
[2020-02-10 06:25] LABS: ALANINE AMINOTRANSFERASE 61 U/L (12-78); ALBUMIN 1.5 g/dL (3.4-5.0); ANION GAP 8 mmol/L (5-15); CHLORIDE 105 mmol/L (98-107); CREATININE 0.73 mg/dL (0.55-1.02)
[2020-02-10 06:28] LABS: ALKALINE PHOSPHATASE 164 U/L (45-117); BILIRUBIN,TOTAL 7.2 mg/dL (0.2-1.0); TOTAL PROTEIN 7.3 g/dL (6.4-8.2)
[2020-02-10 06:33] LABS: MEAN CORPUSCULAR HEMOGLOBIN 32.5 pg (27.0-34.8); MEAN CORPUSCULAR HGB CONC 32.9 g/dL (32.4-35.8); MEAN PLATELET VOLUME 9.9 fL (7.4-10.4); PLATELET COUNT 203 x10^3/uL (130-400); RED BLOOD COUNT 3.16 x10^6/uL (3.82-5.3); RED CELL DISTRIBUTION WIDTH 22.8 % (9.6-15.2)
[2020-02-10] MEDS: ALBUTEROL-IPRATROPIUM MDI INH INH SCH ×4 (06:41→21:35)
[2020-02-10] MEDS: ACETAMINOPHEN 325 MG TABLET PO PRN (06:45)
[2020-02-10 06:51] LABS: MD YES
[2020-02-10 06:53] LABS: BAND#(MANUAL) 0.26 x10^3/uL; BANDS%(MANUAL) 2 % (0-7); EOS#(MANUAL) 0.13 x10^3/uL (0.0-0.4); EOS% (MANUAL) 1 % (1-7); LYMPH#(MANUAL) 2.23 x10^3/uL (1-3.4); LYMPHS% (MANUAL) 17 % (22-44); MONOS#(MANUAL) 0.92 x10^3/uL (0.3-2.7); MONOS% (MANUAL) 7 % (2-9); SEG#(MANUAL) 9.56 x10^3/uL (1.8-6.8); SEGS% (MANUAL) 73 % (42-75)
[2020-02-10 06:54] VITALS: BP 123/77
[2020-02-10 06:54] LABS: ANISOCYTOSIS 1+; POLYCHROMASIA 1+
[2020-02-10 06:55] LABS: <PLATELET ESTIMATE> ADEQUATE; TARGET CELLS 1+
[2020-02-10 06:56] LABS: <PLT MORPHOLOGY> NORMAL PLT MORPH
[2020-02-10] MEDS: INSULIN LISPRO 100 UNITS/ML, PEN SQ-INSULIN SCH ×7 (07:08→21:36)
[2020-02-10] MEDS: INSULIN GLARGINE 100 UNITS/ML, PEN SQ-INSULIN SCH ×2 (07:10→21:00)
[2020-02-10] MEDS: FAMOTIDINE 20 MG TABLET PO SCH ×2 (08:58→21:35)
[2020-02-10] MEDS: THIAMINE 200 MG in SODIUM CHLORIDE 0.9% 50 ML IV SCH (08:58)
[2020-02-10] MEDS: GABAPENTIN 300 MG CAPSULE PO SCH ×3 (08:59→21:35)
[2020-02-10] MEDS: VENLAFAXINE 37.5MG TABLET PO SCH ×2 (08:59→21:35)
[2020-02-10] MEDS: NADOLOL 20 MG TABLET PO SCH (09:11)
[2020-02-10] MEDS: CEFTRIAXONE PMX 1GM/50ML 50 ML IV SCH (10:03)
[2020-02-10] MEDS: LIDODERM REMOVE PATCH NOTE XX SCH (11:15)
[2020-02-10 13:14] VITALS: BP 118/81
[2020-02-10] MEDS ORDERED: ACETAMINOPHEN 325 MG TABLET PO PRN (15:55)
[2020-02-10] MEDS ORDERED: LIDOCAINE 1%, 10ML ONE (15:59)
[2020-02-10] MEDS ORDERED: ALBUMIN HUMAN 25% 50 ML IV ONE (16:00)
[2020-02-10 17:55] VITALS: BP 102/67
[2020-02-10] MEDS: FUROSEMIDE 20 MG TABLET PO SCH (17:56)
[2020-02-10 19:48] VITALS: BP 110/72
[2020-02-10] MEDS: SPIRONOLACTONE 50 MG TABLET PO SCH (21:35)
[2020-02-10] MEDS: NICOTINE 14MG/24 HR PATCH.TD24 TD SCH (21:40)
[2020-02-11 00:46] VITALS: BP 103/61
[2020-02-11] MEDS: HEPARIN 5,000 UNITS/ML, 1ML SQ SCH ×3 (02:16→17:11)
[2020-02-11] MEDS: ALBUTEROL-IPRATROPIUM MDI INH INH SCH ×4 (05:30→21:09)
[2020-02-11] MEDS: INSULIN LISPRO 100 UNITS/ML, PEN SQ-INSULIN SCH ×7 (07:00→21:01)
[2020-02-11] MEDS: SPIRONOLACTONE 50 MG TABLET PO SCH ×2 (07:53→21:00)
[2020-02-11] MEDS: THIAMINE 100MG TABLET PO SCH (07:53)
[2020-02-11] MEDS: FUROSEMIDE 20 MG TABLET PO SCH ×2 (07:53→17:11)
[2020-02-11] MEDS: VENLAFAXINE 37.5MG TABLET PO SCH ×2 (07:53→21:00)
[2020-02-11] MEDS: GABAPENTIN 300 MG CAPSULE PO SCH ×3 (07:53→21:00)
[2020-02-11] MEDS: FAMOTIDINE 20 MG TABLET PO SCH ×2 (07:54→21:09)
[2020-02-11] MEDS: CEFTRIAXONE PMX 1GM/50ML 50 ML IV SCH (07:55)
[2020-02-11] MEDS: INSULIN GLARGINE 100 UNITS/ML, PEN SQ-INSULIN SCH ×2 (07:56→21:01)
[2020-02-11 08:51] VITALS: BP 96/54
[2020-02-11 09:00] LABS: ANION GAP 7 mmol/L (5-15); CALCIUM 7.9 mg/dL (8.5-10.1); CHLORIDE 104 mmol/L (98-107); CREATININE 0.67 mg/dL (0.55-1.02)
[2020-02-11] MEDS: NADOLOL 20 MG TABLET PO SCH (09:47)
[2020-02-11 12:40] VITALS: BP 95/60
[2020-02-11] MEDS: LIDODERM REMOVE PATCH NOTE XX SCH (13:00)
--- NOTE | 2020-02-11 15:24 | NUR ---
Activity sheet placed in patient's room and patient and RN informed. Recommending ambulation with hand held min assist 3x/day. Addendum: 02/11/20 at 1525 by Jose Alonzo PT Amended: Links added.
[2020-02-11 19:45] VITALS: BP 104/68
[2020-02-11] MEDS: TRAZODONE 100MG TABLET PO PRN (21:00)
[2020-02-11] MEDS: NICOTINE 14MG/24 HR PATCH.TD24 TD SCH (21:01)
[2020-02-11] MEDS: LIDODERM 5% PATCH TD PRN (21:10)
[2020-02-12 00:38] VITALS: BP 102/60
[2020-02-12] MEDS: HEPARIN 5,000 UNITS/ML, 1ML SQ SCH ×3 (01:27→16:32)
[2020-02-12] MEDS: ALBUTEROL-IPRATROPIUM MDI INH INH SCH ×4 (05:26→20:53)
[2020-02-12 07:18] LABS: ALBUMIN 1.5 g/dL (3.4-5.0); ANION GAP 7 mmol/L (5-15); CALCIUM 7.8 mg/dL (8.5-10.1); CHLORIDE 102 mmol/L (98-107)
[2020-02-12 07:21] LABS: ALANINE AMINOTRANSFERASE 56 U/L (12-78); ALKALINE PHOSPHATASE 175 U/L (45-117); BILIRUBIN,TOTAL 6.9 mg/dL (0.2-1.0); CREATININE 0.69 mg/dL (0.55-1.02); TOTAL PROTEIN 7.1 g/dL (6.4-8.2)
[2020-02-12] MEDS: INSULIN LISPRO 100 UNITS/ML, PEN SQ-INSULIN SCH ×7 (07:21→20:55)
[2020-02-12 07:22] LABS: BASOPHILS # (AUTO) 0.11 x10^3/uL (0-0.1); BASOPHILS % (AUTO) 1 % (0-1); EOSINOPHILS # (AUTO) 0.17 x10^3/uL (0-0.4); EOSINOPHILS % (AUTO) 2 % (1-7); LYMPHOCYTES # (AUTO) 2.39 x10^3/uL (1-3.4); LYMPHOCYTES % (AUTO) 21 % (22-44); MD MORPH REVIEW ONLY; MEAN CORPUSCULAR HEMOGLOBIN 33.5 pg (27.0-34.8); MEAN CORPUSCULAR HGB CONC 33.9 g/dL (32.4-35.8); MEAN CORPUSCULAR VOLUME 98.8 fL (80-100); MEAN PLATELET VOLUME 9.4 fL (7.4-10.4); MONOCYTES % (AUTO) 9 % (2-9); NEUTROPHILS # (AUTO) 7.64 x10^3/uL (1.8-6.8); NEUTROPHILS % (AUTO) 68 % (42-75); PLATELET COUNT 188 x10^3/uL (130-400); RED BLOOD COUNT 2.98 x10^6/uL (3.82-5.3); RED CELL DISTRIBUTION WIDTH 24.5 % (9.6-15.2)
[2020-02-12] MEDS: ONDANSETRON 2MG/ML, 2ML IVPush PRN (07:32)
[2020-02-12 08:00] LABS: TARGET CELLS 1+
[2020-02-12 08:02] LABS: ANISOCYTOSIS 1+; POLYCHROMASIA 1+
[2020-02-12] MEDS: INSULIN GLARGINE 100 UNITS/ML, PEN SQ-INSULIN SCH ×2 (08:02→20:56)
[2020-02-12] MEDS: GABAPENTIN 300 MG CAPSULE PO SCH ×3 (08:02→20:54)
[2020-02-12] MEDS: VENLAFAXINE 37.5MG TABLET PO SCH ×2 (08:02→20:54)
[2020-02-12] MEDS: SPIRONOLACTONE 50 MG TABLET PO SCH ×2 (08:03→20:54)
[2020-02-12] MEDS: FAMOTIDINE 20 MG TABLET PO SCH ×2 (08:03→20:54)
[2020-02-12] MEDS: FUROSEMIDE 20 MG TABLET PO SCH ×2 (08:03→16:32)
[2020-02-12] MEDS: THIAMINE 100MG TABLET PO SCH (08:03)
[2020-02-12] MEDS: NADOLOL 20 MG TABLET PO SCH (08:05)
[2020-02-12 08:06] LABS: <PLATELET ESTIMATE> ADEQUATE; <PLT MORPHOLOGY> NORMAL PLT MORPH
[2020-02-12 08:11] VITALS: BP 111/71
[2020-02-12] MEDS: CEFTRIAXONE PMX 1GM/50ML 50 ML IV SCH ×2 (08:56→20:53)
[2020-02-12] MEDS: LIDODERM REMOVE PATCH NOTE XX SCH (11:11)
[2020-02-12 13:33] VITALS: BP 106/70
[2020-02-12 20:07] VITALS: BP 116/77
[2020-02-12] MEDS: NICOTINE 14MG/24 HR PATCH.TD24 TD SCH (20:53)
[2020-02-12] MEDS: TRAZODONE 100MG TABLET PO PRN (20:54)
[2020-02-12] MEDS: LIDODERM 5% PATCH TD PRN (20:56)
[2020-02-13 00:50] VITALS: BP 100/66
[2020-02-13] MEDS: HEPARIN 5,000 UNITS/ML, 1ML SQ SCH ×3 (00:56→17:10)
[2020-02-13] MEDS: ALBUTEROL-IPRATROPIUM MDI INH INH SCH ×4 (05:56→21:14)
[2020-02-13] MEDS: ONDANSETRON 2MG/ML, 2ML IVPush PRN ×3 (06:02→21:23)
[2020-02-13 06:46] LABS: ANION GAP 9 mmol/L (5-15); CALCIUM 7.8 mg/dL (8.5-10.1); CHLORIDE 100 mmol/L (98-107)
[2020-02-13 06:47] LABS: CREATININE 0.69 mg/dL (0.55-1.02)
[2020-02-13] MEDS: INSULIN LISPRO 100 UNITS/ML, PEN SQ-INSULIN SCH ×7 (07:00→21:17)
[2020-02-13 07:24] VITALS: BP 124/74
[2020-02-13] MEDS: GABAPENTIN 300 MG CAPSULE PO SCH ×3 (09:00→21:19)
[2020-02-13] MEDS: NADOLOL 20 MG TABLET PO SCH (09:10)
[2020-02-13] MEDS: VENLAFAXINE 37.5MG TABLET PO SCH ×2 (09:10→21:19)
[2020-02-13] MEDS: FAMOTIDINE 20 MG TABLET PO SCH ×2 (09:10→21:18)
[2020-02-13] MEDS: SPIRONOLACTONE 50 MG TABLET PO SCH ×2 (09:10→21:18)
[2020-02-13] MEDS: THIAMINE 100MG TABLET PO SCH (09:10)
[2020-02-13] MEDS: CEFTRIAXONE PMX 1GM/50ML 50 ML IV SCH ×2 (09:11→21:15)
[2020-02-13] MEDS: FUROSEMIDE 20 MG TABLET PO SCH ×2 (09:11→17:10)
[2020-02-13] MEDS: INSULIN GLARGINE 100 UNITS/ML, PEN SQ-INSULIN SCH ×2 (09:12→21:17)
[2020-02-13] MEDS: LIDODERM 5% PATCH TD PRN (12:32)
[2020-02-13] MEDS: NICOTINE 7 MG/24 HR PATCH.TD24 TD SCH (12:32)
[2020-02-13] MEDS: LIDODERM REMOVE PATCH NOTE XX SCH (12:34)
[2020-02-13] MEDS ORDERED: LIDOCAINE 1%, 10ML ONE (13:29)
[2020-02-13 16:23] VITALS: BP 111/72
[2020-02-13 19:24] VITALS: BP 117/76
[2020-02-13] MEDS: TRAZODONE 100MG TABLET PO PRN (21:24)
[2020-02-14] MEDS: HEPARIN 5,000 UNITS/ML, 1ML SQ SCH ×3 (00:42→17:33)
[2020-02-14] MEDS: LIDODERM REMOVE PATCH NOTE XX SCH (00:42)
[2020-02-14 00:51] VITALS: BP 110/65
[2020-02-14 06:07] LABS: ALBUMIN 1.5 g/dL (3.4-5.0); ANION GAP 8 mmol/L (5-15); CALCIUM 7.8 mg/dL (8.5-10.1); CHLORIDE 98 mmol/L (98-107)
[2020-02-14 06:14] LABS: ALANINE AMINOTRANSFERASE 59 U/L (12-78); ALKALINE PHOSPHATASE 193 U/L (45-117); BILIRUBIN,TOTAL 5.7 mg/dL (0.2-1.0); CHOL/HDL RATIO 10.4; CHOLESTEROL, TOTAL 104 mg/dL (140-239); CREATININE 0.75 mg/dL (0.55-1.02); HDL CHOL % 10 % (28-40); HDL CHOLESTEROL (DIRECT) 10 mg/dL (40-60); TOTAL PROTEIN 7.2 g/dL (6.4-8.2)
[2020-02-14] MEDS: ONDANSETRON 2MG/ML, 2ML IVPush PRN (06:15)
[2020-02-14] MEDS: ALBUTEROL-IPRATROPIUM MDI INH INH SCH ×4 (06:15→21:00)
[2020-02-14 06:16] LABS: MEAN CORPUSCULAR HEMOGLOBIN 33.5 pg (27.0-34.8); MEAN CORPUSCULAR HGB CONC 33.6 g/dL (32.4-35.8); MEAN CORPUSCULAR VOLUME 99.7 fL (80-100); PLATELET COUNT 191 x10^3/uL (130-400); RED BLOOD COUNT 3.04 x10^6/uL (3.82-5.3); RED CELL DISTRIBUTION WIDTH 24.4 % (9.6-15.2)
[2020-02-14 06:18] LABS: LDL CHOLESTEROL,CALCULATED 56 mg/dL (54-169); LDL/HDL RATIO 5.6 (0.5-3.0); TRIGLYCERIDES 189 mg/dL (50-200); VLDL CHOLESTEROL 38 mg/dL (0-25)
[2020-02-14 06:46] LABS: BASOPHILS # (AUTO) 0.11 x10^3/uL (0-0.1); BASOPHILS % (AUTO) 1 % (0-1); EOSINOPHILS # (AUTO) 0.22 x10^3/uL (0-0.4); EOSINOPHILS % (AUTO) 2 % (1-7); LYMPHOCYTES # (AUTO) 2.68 x10^3/uL (1-3.4); LYMPHOCYTES % (AUTO) 23 % (22-44); MD SCAN; MONOCYTES # (AUTO) 1.28 x10^3/uL (0.2-0.8); MONOCYTES % (AUTO) 11 % (2-9); NEUTROPHILS # (AUTO) 7.29 x10^3/uL (1.8-6.8); NEUTROPHILS % (AUTO) 63 % (42-75)
[2020-02-14 07:10] VITALS: BP 97/65
[2020-02-14] MEDS: FAMOTIDINE 20 MG TABLET PO SCH ×2 (08:14→21:23)
[2020-02-14] MEDS: SPIRONOLACTONE 50 MG TABLET PO SCH ×2 (08:14→21:23)
[2020-02-14] MEDS: MAGNESIUM CHLORIDE 70MG TAB DR PO SCH ×2 (08:14→21:22)
[2020-02-14] MEDS: GABAPENTIN 300 MG CAPSULE PO SCH ×3 (08:14→21:23)
[2020-02-14] MEDS: VENLAFAXINE 37.5MG TABLET PO SCH ×2 (08:14→21:23)
[2020-02-14] MEDS: NADOLOL 20 MG TABLET PO SCH ×2 (08:14→12:00)
[2020-02-14] MEDS: CEFTRIAXONE PMX 1GM/50ML 50 ML IV SCH ×2 (08:15→21:22)
[2020-02-14] MEDS: THIAMINE 100MG TABLET PO SCH (08:15)
[2020-02-14] MEDS: FUROSEMIDE 20 MG TABLET PO SCH ×2 (08:15→17:33)
[2020-02-14] MEDS: INSULIN LISPRO 100 UNITS/ML, PEN SQ-INSULIN SCH ×7 (08:16→21:24)
[2020-02-14] MEDS: INSULIN GLARGINE 100 UNITS/ML, PEN SQ-INSULIN SCH ×2 (08:16→21:25)
[2020-02-14 08:23] VITALS: BP 98/63
[2020-02-14] MEDS: NICOTINE 7 MG/24 HR PATCH.TD24 TD SCH (12:11)
[2020-02-14] MEDS: LIDODERM 5% PATCH TD PRN (12:11)
[2020-02-14 12:34] VITALS: BP 124/82
[2020-02-14 19:25] VITALS: BP 102/67
[2020-02-14] MEDS: TRAZODONE 100MG TABLET PO PRN (21:38)
[2020-02-15 00:15] VITALS: BP 99/62
[2020-02-15] MEDS: HEPARIN 5,000 UNITS/ML, 1ML SQ SCH ×2 (01:17→09:00)
[2020-02-15] MEDS: ALBUTEROL-IPRATROPIUM MDI INH INH SCH ×2 (06:21→09:18)
[2020-02-15 07:59] VITALS: BP 111/72
[2020-02-15] MEDS: CEFTRIAXONE PMX 1GM/50ML 50 ML IV SCH ×2 (08:55→09:00)
[2020-02-15] MEDS: FAMOTIDINE 20 MG TABLET PO SCH (08:56)
[2020-02-15] MEDS: MAGNESIUM CHLORIDE 70MG TAB DR PO SCH (08:56)
[2020-02-15] MEDS: NADOLOL 20 MG TABLET PO SCH (08:56)
[2020-02-15] MEDS: VENLAFAXINE 37.5MG TABLET PO SCH (08:56)
[2020-02-15] MEDS: FUROSEMIDE 20 MG TABLET PO SCH (08:56)
[2020-02-15] MEDS: SPIRONOLACTONE 50 MG TABLET PO SCH (08:56)
[2020-02-15] MEDS: GABAPENTIN 300 MG CAPSULE PO SCH (08:57)
[2020-02-15] MEDS: THIAMINE 100MG TABLET PO SCH (08:57)
[2020-02-15] MEDS: INSULIN GLARGINE 100 UNITS/ML, PEN SQ-INSULIN SCH (08:57)
[2020-02-15] MEDS: INSULIN LISPRO 100 UNITS/ML, PEN SQ-INSULIN SCH ×4 (08:58→11:58)
[2020-02-15] MEDS: NICOTINE 7 MG/24 HR PATCH.TD24 TD SCH (09:10)
[2020-02-15] MEDS ORDERED: INSU100I13 SQ-INSULIN (09:30)
[2020-02-15] MEDS ORDERED: NICO-485 TD (09:30)
[2020-02-15] MEDS ORDERED: [UNRECOGNIZED DRUG - CODE] XX (09:30)
[2020-02-15] MEDS ORDERED: THIA100T67 PO (09:30)
[2020-02-15] MEDS ORDERED: VENL37.57 PO (09:30)
[2020-02-15] MEDS ORDERED: FURO20TA3 PO (09:30)
[2020-02-15] MEDS ORDERED: SPIR50TA PO (09:30)
[2020-02-15] MEDS ORDERED: [UNRECOGNIZED DRUG - CODE] XX (09:30)
[2020-02-15] MEDS ORDERED: LANC1COM XX (09:30)
[2020-02-15] MEDS ORDERED: INSU100I11 SQ-INSULIN (09:30)
[2020-02-15] MEDS: LIDODERM REMOVE PATCH NOTE XX SCH (12:15)
[2020-02-15 13:22] VITALS: BP 115/60
== END 2020-02-15 14:40 | disposition home or self-care (01) | DRG 441 ==
LOC: ED 18:17 → EDIP 18:35 → 4WST 19:07 → DCLOUNGE 02-15 14:27
PROVIDERS: ADMIT Family Medicine; ATTEND Hospitalist
PROC: 0DH67UZ Insertion of Feeding Device into Stomach, Via Natural or Artificial Opening (ICD-10-PCS; principal; 2020-02-04)
PROC: 0W9G3ZZ Drainage of Peritoneal Cavity, Percutaneous Approach (ICD-10-PCS; 2020-02-10)
PROC: BW40ZZZ Ultrasonography of Abdomen (ICD-10-PCS; 2020-02-10)
PROC: 0W9G3ZZ Drainage of Peritoneal Cavity, Percutaneous Approach (ICD-10-PCS; 2020-02-13)
PROC: BW40ZZZ Ultrasonography of Abdomen (ICD-10-PCS; 2020-02-13)
DX: K76.7 Hepatorenal syndrome (principal); N17.0 Acute kidney failure with tubular necrosis; K85.20 Alcohol induced acute pancreatitis without necrosis or infection; J18.9 Pneumonia, unspecified organism; E43 Unspecified severe protein-calorie malnutrition; G92 Toxic encephalopathy; I81 Portal vein thrombosis; J44.0 Chronic obstructive pulmonary disease with (acute) lower respiratory infection; F33.9 Major depressive disorder, recurrent, unspecified; E87.2 Acidosis; E87.1 Hypo-osmolality and hyponatremia; K92.2 Gastrointestinal hemorrhage, unspecified; N39.0 Urinary tract infection, site not specified; E87.0 Hyperosmolality and hypernatremia; K76.6 Portal hypertension; D68.9 Coagulation defect, unspecified; N12 Tubulo-interstitial nephritis, not specified as acute or chronic; R78.81 Bacteremia; K70.40 Alcoholic hepatic failure without coma; D64.9 Anemia, unspecified; K70.30 Alcoholic cirrhosis of liver without ascites; E87.6 Hypokalemia; R34 Anuria and oliguria; F41.9 Anxiety disorder, unspecified; K70.31 Alcoholic cirrhosis of liver with ascites; K70.11 Alcoholic hepatitis with ascites; E83.39 Other disorders of phosphorus metabolism; E83.42 Hypomagnesemia; R16.1 Splenomegaly, not elsewhere classified; N20.0 Calculus of kidney; B96.20 Unspecified Escherichia coli [E. coli] as the cause of diseases classified elsewhere; E87.8 Other disorders of electrolyte and fluid balance, not elsewhere classified; R19.7 Diarrhea, unspecified; R13.10 Dysphagia, unspecified; D72.829 Elevated white blood cell count, unspecified; M25.511 Pain in right shoulder; R94.31 Abnormal electrocardiogram [ECG] [EKG]; E11.65 Type 2 diabetes mellitus with hyperglycemia; K21.9 Gastro-esophageal reflux disease without esophagitis; Z78.1 Physical restraint status; Z80.9 Family history of malignant neoplasm, unspecified; Z81.1 Family history of alcohol abuse and dependence; Z83.3 Family history of diabetes mellitus; Z87.442 Personal history of urinary calculi; Z98.51 Tubal ligation status; Z68.25 Body mass index [BMI] 25.0-25.9, adult
CPT/HCPCS: 36415; 36600; 73030; 74018; 74340; 99291; A9575; J3490; 49083; 71045; 74176; 74183; 76700; 76705; 76770; 80048; 80053; 80061; 80074; 80307; 81001; 82040; 82140; 82272; 82306; 82310; 82330; 82436; 82550; 82570; 82728; 82803; 82962; 83036; 83540; 83550; 83605; 83690; 83735; 83930; 83935; 83970; 84100; 84133; 84156; 84295; 84300; 84550; 85025; 85045; 85610; 87040; 87205; 87324; 93005; 93975; 99156; 99157; G0378; J0610; J0696; J1644; J2185; J2250; J2405; J3010; J3411; J3480; J7070; P9047; C9113; J1815; J2060; J7030; J7040; J7120

== ENCOUNTER 2020-11-11 21:19 | Inpatient (IN) | payer MEDICAID ==
[~2020-11-11] VITALS: Ht 170.2 cm; Wt 73.3 kg
[~2020-11-11 21:19] MED LIST: ALBUTEROL; FURO20TA3 PO; INSU100I11 SQ-INSULIN; INSU100I13 SQ-INSULIN; LACT10SO28 PO; LANC1COM XX; MULTIVITAMIN; NADO80TA2 PO; NICO-485 TD; ONDA4TAB13 SL; PANT40TA6 PO; SPIR50TA PO; SUCR1TAB PO; THIA100T67 PO; TRAZ-175 PO; VENL37.511 PO; VENL37.57 PO; [UNRECOGNIZED DRUG - CODE] XX; [UNRECOGNIZED DRUG - CODE] XX
[2020-11-11] MEDS ORDERED: SODIUM CHLORIDE 0.9% 1,000ML IVBOLUS ONE (22:00)
[2020-11-11 22:08] LABS: ALANINE AMINOTRANSFERASE 44 U/L (12-78); ALBUMIN 2.4 g/dL (3.4-5.0); ANION GAP 9 mmol/L (5-15); CALCIUM 7.9 mg/dL (8.5-10.1); CHLORIDE 98 mmol/L (98-107); CREATININE 0.78 mg/dL (0.55-1.02)
[2020-11-11 22:11] LABS: ALKALINE PHOSPHATASE 163 U/L (45-117); BILIRUBIN,TOTAL 12.4 mg/dL (0.2-1.0); TOTAL PROTEIN 7.4 g/dL (6.4-8.2)
[2020-11-11] MEDS ORDERED: SODIUM CHLORIDE 0.9% 1,000 ML IV ONE (23:00)
[2020-11-11] MEDS ORDERED: ONDANSETRON 2MG/ML, 2ML IVPush PRN (23:00)
[2020-11-11 23:35] LABS: MEAN CORPUSCULAR HEMOGLOBIN 34.9 pg (27.0-34.8); MEAN CORPUSCULAR HGB CONC 35.5 g/dL (32.4-35.8); MEAN PLATELET VOLUME 8.9 fL (7.4-10.4); RED BLOOD COUNT 3.51 x10^6/uL (3.82-5.3); RED CELL DISTRIBUTION WIDTH 16.2 % (9.6-15.2)
[2020-11-12] VITALS (7 sets, daily range): BP systolic 92–112; BP diastolic 61–76
[2020-11-12] MEDS ORDERED: LORazepam 2 MG/ML, 1ML IVPush PRN
[2020-11-12 00:06] LABS: MD YES; PLATELET COUNT 23 x10^3/uL (130-400)
[2020-11-12 00:11] LABS: ANISOCYTOSIS 1+; BAND#(MANUAL) 0.15 x10^3/uL; BANDS%(MANUAL) 2 % (0-7); EOS#(MANUAL) 0.07 x10^3/uL (0.0-0.4); EOS% (MANUAL) 1 % (1-7); LYMPH#(MANUAL) 1.02 x10^3/uL (1-3.4); LYMPHS% (MANUAL) 14 % (22-44); MONOS#(MANUAL) 0.66 x10^3/uL (0.3-2.7); MONOS% (MANUAL) 9 % (2-9); POLYCHROMASIA 1+; REACTIVE LYMPHS # (MANUAL) 0.07 x10^3/uL (0-0); REACTIVE LYMPHS % (MANUAL) 1 % (0-0); SEG#(MANUAL) 5.33 x10^3/uL (1.8-6.8); SEGS% (MANUAL) 73 % (42-75); TARGET CELLS 1+
[2020-11-12 00:12] LABS: <PLATELET ESTIMATE> DECREASED; <PLT MORPHOLOGY> NORMAL PLT MORPH
[2020-11-12] MEDS ORDERED: ONDANSETRON 2MG/ML, 2ML IVPush PRN (00:30)
[2020-11-12] MEDS ORDERED: BISACODYL 10 MG SUPP PR PRN (00:30)
[2020-11-12] MEDS ORDERED: MAGNESIUM SULFATE PMX 4GM/100M 100 ML IVPB ONE (00:30)
--- NOTE | 2020-11-12 00:47 | NUR ---
PT TRANSFERED FROM [facility] FOR CONTINUED MONITORING AFTER PT WENT TO ER YESTERDAY AFTER HEARING VOICES. PT HAS HX ETOH ABOUSE AND HAS CIRROHSIS FROM IT. PT HAS JAUNDICE OF EYE AND SKIN AT CONTACT. PT A/O X4 BUT FEELS FOGGY
[2020-11-12] MEDS ORDERED: MAGNESIUM SULFATE PMX 4GM/100M 100 ML ONE (00:59)
[2020-11-12] MEDS ORDERED: NICOTINE 7 MG/24 HR PATCH.TD24 ONE (00:59)
[2020-11-12] MEDS: NICOTINE 7 MG/24 HR PATCH.TD24 TD SCH (01:03)
[2020-11-12] MEDS: NS + 20MEQ KCL 1,000 ML IV SCH ×3 (01:03→21:33)
[2020-11-12 06:41] LABS: BASOPHILS % (AUTO) 1 % (0-1); EOSINOPHILS % (AUTO) 0 % (1-7); LYMPHOCYTES % (AUTO) 22 % (22-44); MEAN CORPUSCULAR HEMOGLOBIN 34.8 pg (27.0-34.8); MEAN CORPUSCULAR HGB CONC 34.7 g/dL (32.4-35.8); MEAN PLATELET VOLUME 9.1 fL (7.4-10.4); MONOCYTES % (AUTO) 15 % (2-9); NEUTROPHILS % (AUTO) 62 % (42-75); RED BLOOD COUNT 3.53 x10^6/uL (3.82-5.3)
[2020-11-12 06:42] LABS: ALANINE AMINOTRANSFERASE 40 U/L (12-78); ALBUMIN 2.2 g/dL (3.4-5.0); ANION GAP 9 mmol/L (5-15); CALCIUM 7.5 mg/dL (8.5-10.1); CHLORIDE 100 mmol/L (98-107); CREATININE 0.71 mg/dL (0.55-1.02)
[2020-11-12 06:45] LABS: ALKALINE PHOSPHATASE 140 U/L (45-117); BILIRUBIN,TOTAL 11.2 mg/dL (0.2-1.0); TOTAL PROTEIN 6.6 g/dL (6.4-8.2)
[2020-11-12] MEDS: INSULIN LISPRO 100 UNITS/ML, PEN SQ-INSULIN SCH ×5 (07:00→20:48)
[2020-11-12] MEDS ORDERED: FUROSEMIDE 20 MG TABLET PO SCH (08:00)
[2020-11-12 08:04] LABS: PLATELET COUNT 30 x10^3/uL (130-400)
[2020-11-12 08:05] LABS: MD SCAN
[2020-11-12] MEDS: LACTULOSE 10 GM/15 ML UDC PO SCH (08:27)
[2020-11-12] MEDS: MULTIVITAMINS/MINERALS TABLET PO SCH (08:27)
[2020-11-12] MEDS: FOLIC ACID 1 MG TABLET PO SCH (08:27)
[2020-11-12] MEDS: THIAMINE 100MG TABLET PO SCH (08:36)
[2020-11-12] MEDS ORDERED: SPIRONOLACTONE 50 MG TABLET PO SCH (09:00)
[2020-11-12] MEDS ORDERED: VENLAFAXINE 37.5MG TABLET PO SCH (09:00)
[2020-11-12] MEDS: NADOLOL 20 MG TABLET PO SCH ×2 (10:30→14:09)
[2020-11-12] MEDS: FUROSEMIDE 20 MG TABLET PO SCH (14:21)
[2020-11-12] MEDS: SPIRONOLACTONE 50 MG TABLET PO SCH (14:21)
[2020-11-12] MEDS: CHLORDIAZEPOXIDE 25 MG CAPSULE PO PRN (18:42)
[2020-11-12] MEDS: TRAZODONE 50MG TABLET PO SCH (20:41)
[2020-11-12] MEDS: VENLAFAXINE 37.5MG TABLET PO SCH (20:41)
[2020-11-13 00:25] VITALS: BP 90/59
[2020-11-13] MEDS: NICOTINE 7 MG/24 HR PATCH.TD24 TD SCH (00:55)
[2020-11-13 04:52] LABS: BASOPHILS % (AUTO) 1 % (0-1); EOSINOPHILS % (AUTO) 2 % (1-7); LYMPHOCYTES % (AUTO) 29 % (22-44); MEAN CORPUSCULAR HEMOGLOBIN 34.7 pg (27.0-34.8); MEAN CORPUSCULAR HGB CONC 34.5 g/dL (32.4-35.8); MEAN PLATELET VOLUME 9.7 fL (7.4-10.4); MONOCYTES % (AUTO) 13 % (2-9); NEUTROPHILS % (AUTO) 55 % (42-75); RED BLOOD COUNT 3.22 x10^6/uL (3.82-5.3); RED CELL DISTRIBUTION WIDTH 15.9 % (9.6-15.2)
[2020-11-13 04:57] LABS: INTERNATIONAL NORMALIZED RATIO 2.48 (0.93-1.1); PLATELET COUNT 24 x10^3/uL (130-400); PROTHROMBIN TIME 26.1 Seconds (9.6-11.5)
[2020-11-13 05:01] LABS: ALANINE AMINOTRANSFERASE 43 U/L (12-78); ALBUMIN 1.9 g/dL (3.4-5.0); ANION GAP 7 mmol/L (5-15); CALCIUM 7.1 mg/dL (8.5-10.1); CHLORIDE 102 mmol/L (98-107); CREATININE 0.54 mg/dL (0.55-1.02)
[2020-11-13 05:03] LABS: ALKALINE PHOSPHATASE 130 U/L (45-117); BILIRUBIN,TOTAL 8.6 mg/dL (0.2-1.0)
[2020-11-13 05:44] LABS: MD SCAN
[2020-11-13] MEDS: INSULIN LISPRO 100 UNITS/ML, PEN SQ-INSULIN SCH ×4 (07:00→21:39)
[2020-11-13 07:45] VITALS: BP 92/58
[2020-11-13] MEDS: NADOLOL 20 MG TABLET PO SCH (09:00)
[2020-11-13] MEDS ORDERED: POTASSIUM PHOSPHATE 44 MEQ in SODIUM CHLORIDE 0.9% 500 ML IV ONE (09:30)
[2020-11-13] MEDS ORDERED: MAGNESIUM SULFATE PMX 4GM/100M 100 ML IVPB ONE (09:30)
[2020-11-13] MEDS: VENLAFAXINE 37.5MG TABLET PO SCH ×2 (09:44→21:07)
[2020-11-13] MEDS: SPIRONOLACTONE 50 MG TABLET PO SCH (09:45)
[2020-11-13] MEDS: FUROSEMIDE 20 MG TABLET PO SCH (09:45)
[2020-11-13] MEDS: MULTIVITAMINS/MINERALS TABLET PO SCH (09:45)
[2020-11-13] MEDS: FOLIC ACID 1 MG TABLET PO SCH (09:45)
[2020-11-13] MEDS: LACTULOSE 10 GM/15 ML UDC PO SCH (09:45)
[2020-11-13] MEDS: THIAMINE 100MG TABLET PO SCH (09:46)
[2020-11-13] MEDS ORDERED: POTASSIUM CHLORIDE 40 MEQ in SODIUM CHLORIDE 0.9% 500 ML IV ONE (10:00)
[2020-11-13 13:05] VITALS: BP 101/68
[2020-11-13] MEDS ORDERED: POTASSIUM CHLORIDE 10 MEQ TABLET.ER PO SCH (17:00)
[2020-11-13 18:27] VITALS: BP 99/63
[2020-11-13] MEDS: TRAZODONE 50MG TABLET PO SCH (21:07)
[2020-11-13] MEDS: CHLORDIAZEPOXIDE 25 MG CAPSULE PO PRN (21:16)
[2020-11-14] MEDS: NICOTINE 7 MG/24 HR PATCH.TD24 TD SCH (00:13)
[2020-11-14 00:14] VITALS: BP 90/55
[2020-11-14 03:36] VITALS: BP 93/58
[2020-11-14 05:22] LABS: ANION GAP 5 mmol/L (5-15); CALCIUM 7.1 mg/dL (8.5-10.1); CHLORIDE 103 mmol/L (98-107)
[2020-11-14 05:27] LABS: ALANINE AMINOTRANSFERASE 59 U/L (12-78); ALKALINE PHOSPHATASE 145 U/L (45-117); BILIRUBIN,TOTAL 8.1 mg/dL (0.2-1.0); CREATININE 0.46 mg/dL (0.55-1.02); TOTAL PROTEIN 6.3 g/dL (6.4-8.2)
[2020-11-14] MEDS: INSULIN LISPRO 100 UNITS/ML, PEN SQ-INSULIN SCH ×2 (07:00→11:00)
[2020-11-14 08:03] VITALS: BP 99/62
[2020-11-14] MEDS ORDERED: POTASSIUM PHOSPHATE 44 MEQ in SODIUM CHLORIDE 0.9% 500 ML IV ONE (09:00)
[2020-11-14] MEDS: LACTULOSE 10 GM/15 ML UDC PO SCH (10:14)
[2020-11-14] MEDS: VENLAFAXINE 37.5MG TABLET PO SCH (10:15)
[2020-11-14] MEDS: NADOLOL 20 MG TABLET PO SCH (10:15)
[2020-11-14] MEDS: SPIRONOLACTONE 50 MG TABLET PO SCH (10:15)
[2020-11-14] MEDS: FOLIC ACID 1 MG TABLET PO SCH (10:16)
[2020-11-14] MEDS: THIAMINE 100MG TABLET PO SCH (10:16)
[2020-11-14] MEDS: MULTIVITAMINS/MINERALS TABLET PO SCH (10:16)
[2020-11-14] MEDS: FUROSEMIDE 20 MG TABLET PO SCH (10:16)
[2020-11-14] MEDS ORDERED: SPIR50TA PO (12:55)
[2020-11-14] MEDS ORDERED: FURO20TA3 PO (12:55)
[2020-11-14] MEDS ORDERED: POTA10TA5 PO (12:55)
== END 2020-11-14 15:55 | disposition home or self-care (01) | DRG 432 ==
LOC: ED 22:26 → EDIP 23:04 → 5SO 11-12 04:43 → DCLOUNGE 11-14 15:47
PROVIDERS: ADMIT Internal Medicine; ATTEND Internal Medicine
DX: K70.31 Alcoholic cirrhosis of liver with ascites (principal); K85.20 Alcohol induced acute pancreatitis without necrosis or infection; F10.239 Alcohol dependence with withdrawal, unspecified; E87.1 Hypo-osmolality and hyponatremia; D69.6 Thrombocytopenia, unspecified; E11.9 Type 2 diabetes mellitus without complications; E83.42 Hypomagnesemia; E87.6 Hypokalemia; F12.90 Cannabis use, unspecified, uncomplicated; F17.200 Nicotine dependence, unspecified, uncomplicated; F32.9 Major depressive disorder, single episode, unspecified; F41.9 Anxiety disorder, unspecified; J44.9 Chronic obstructive pulmonary disease, unspecified; K21.9 Gastro-esophageal reflux disease without esophagitis; K80.20 Calculus of gallbladder without cholecystitis without obstruction; Z79.4 Long term (current) use of insulin; Z80.9 Family history of malignant neoplasm, unspecified; Z82.49 Family history of ischemic heart disease and other diseases of the circulatory system; Z83.3 Family history of diabetes mellitus; Z87.442 Personal history of urinary calculi
CPT/HCPCS: 36415; 76700; 80053; 82962; 83690; 83735; 84100; 85025; 85610; 99285; G0378; J3480; J1815; J2060; J3475; J7030; J7040